=== PATIENT | female | born 1985 | race Hispanic/Latino ===

== ENCOUNTER 2017-03-22 17:08 | Emergency (ER) | payer OTHER ==
[2017-03-22 18:06] VITALS: BP 114/74; PULSE 70; RESP 16; TEMP 98.3; O2SAT 100
[2017-03-22] MEDS ORDERED: Tdap Vaccine 0.5 ml Vial (10-64 yrs) IM ONE (19:03)
[2017-03-22] MEDS ORDERED: Amoxicillin-Clav 875-125 mg Tab PO STA (19:03)
[2017-03-22] MEDS ORDERED: Rabies Immune Globulin 150 INTLU/ML VIAL IM ONE (19:20)
--- NOTE | 2017-03-22 19:23 | ED PDOC ---
HPI: Skin/Bite Injury Time Seen by Provider: 03/22/17 19:00 Chief Complaint (Nursing): Bite Chief Complaint (Provider): Dog Bite History Per: Patient History/Exam Limitations: no limitations Onset/Duration Of Symptoms: Days (x1) Current Symptoms Are (Timing): Still Present Additional Complaint(s): 31 y/o female presents to the emergency department for evaluation of a dog bite sustained today. States she was running for the bus earlier today when a strangers dog randomly lunged at her and bit her hand. 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 Initially the skin was not broken, but after patient washed hands she noticed bruising and pain at the site. Patient cannot recall date of last tetanus booster. PMD: Provider in [place] - Animal Bite Description Of The Attack: Unprovoked Attack Description Of The Animal: Family Pet (of stranger) Animal Appears: Unknown Animal's Immunization Status: Unknown Past Medical History Reviewed: Historical Data, Nursing Documentation, Vital Signs Vital Signs: Last Vital Signs Temp 98.3 F 03/22/17 18:02 Pulse 70 03/22/17 18:02 Resp 16 03/22/17 18:02 BP 114/74 03/22/17 18:02 Pulse Ox 100 03/22/17 20:56 - Medical History PMH: No Chronic Diseases - Family History Family History: States: Unknown Family Hx - Home Medications Home Medications: Ambulatory Orders Medication Instructions Recorded Amoxicillin/Clavulanate [Augmentin 1 tab PO BID #10 tab 03/22/17 875 MG-125 MG] - Allergies Allergies/Adverse Reactions: Allergies Allergy/AdvReac Type Severity Reaction Status Date / Time No Known Allergies Allergy Verified 03/22/17 18:02 Review of Systems ROS Statement: Except As Marked, All Systems Reviewed And Found Negative Constitutional: Negative for: Fever, Chills Skin: Positive for: Lesions (dog bite to right hand) Physical Exam - Reviewed Nursing Documentation Reviewed: Yes Vital Signs Reviewed: Yes - Physical Exam Appears: Positive for: Well, Non-toxic, No Acute Distress Head Exam: Positive for: ATRAUMATIC, NORMAL INSPECTION, NORMOCEPHALIC Skin: Positive for: Normal Color (with small superficial laceration noted to the dorsum of right hand, near proximal phalanx, with bruising on the dorsum of the hand) Eye Exam: Positive for: Normal appearance Pulses-Radial (L): 2+ Pulses-Radial (R): 2+ Extremity: Positive for: Normal ROM, Capillary Refill (< 2 sec). Negative for: Deformity Neurologic/Psych: Positive for: Alert, Oriented - ECG O2 Sat by Pulse Oximetry: 100 (RA) Pulse Ox Interpretation: Normal Medical Decision Making Medical Decision Making: Initial Impression: Dog Bite Time: 19:20 Initial Plan: --Tetanus vaccine will be given --Augmentin 1 tab PO --Imovam and Rabavert vaccination prepared Discussed risks and benefits of rabies vaccination series. Patient will obtain initial vaccination today and search for dog/geothermal powerplant mechanic helper to obtain vaccination information. Time: 20:50 Gave 3.5 ml of Rabies immunoglobulin by wound and on finger, peripheral to wound. Scribe Attestation: Documented by Afsaneh Rhoades, acting as a scribe for Barrett Smyth PA-C Provider Scribe Attestation: All medical record entries made by the Scribe were at my direction and personally dictated by me. I have reviewed the chart and agree that the record accurately reflects my personal performance of the history, physical exam, medical decision making, and the department course for this patient. I have also personally directed, reviewed, and agree with the discharge instructions and disposition. Disposition - Clinical Impression Clinical Impression: Animal bite wound - Patient ED Disposition Is Patient to be Admitted: No Counseled Patient/Family Regarding: Diagnosis, Need For Followup, Rx Given - Disposition Disposition: Routine/Home Disposition Time: 21:02 Condition: FAIR Additional Instructions: RETURN TO ED 03/25/2017 FOR DAY 3 (SECOND DOSE) RABIES VACCINE. Prescriptions: Amoxicillin/Clavulanate [Augmentin 875 MG-125 MG] 1 tab PO BID #10 tab Instructions: Rabies Vaccine (ED) Forms: [email or web address] ([place]ian)
[2017-03-22] MEDS ORDERED: RABIES VACCINE 2.5 Units PDR IM ONE (19:24)
== END 2017-03-22 22:13 | disposition home or self-care (01) ==
LOC: H.ER 17:08
DX: S69.91XA Unspecified injury of right wrist, hand and finger(s), initial encounter (principal); W54.0XXA Bitten by dog, initial encounter; Y92.89 Other specified places as the place of occurrence of the external cause